=== PATIENT | female | born 1945 | race Hispanic/Latino ===

== ENCOUNTER 2018-12-03 04:49 | Emergency (ER) | payer SELFPAY ==
[~2018-12-03] VITALS: Ht 157.5 cm; Wt 60.0 kg
[2018-12-03] MEDS ORDERED: NORVASC5 M1 PO (05:11)
[2018-12-03] MEDS ORDERED: METOPROLOL TAR100 MG PO (05:12)
[2018-12-03] MEDS ORDERED: GLIMEPIRIDE2 MG PO (05:13)
[2018-12-03 05:31] LABS: HEMATOCRIT 40.6 % (37.0-47.0); HEMOGLOBIN 14.2 g/dl (12.0-16.0); IMMATURE GRANULOCYTES 0.8 % (0.0-5.0); MEAN CELL VOLUME 85.5 fL CALC (80.0-100.0); MEAN CORPUSCULAR HGB 29.9 pG CALC (26.0-32.0); NEUT# 18.83 thou/uL (2.00-7.15); RED BLOOD COUNT 4.75 mill/uL (4.20-5.60); RED CELL DISTRI WIDTH 12.2 % (11.5-15.5)
[2018-12-03 05:44] LABS: ALBUMIN 4.5 g/dL (3.2-5.0); ALKALINE PHOSPHATASE 215 u/l (38-126); AMYLASE 63 u/l (30-110); ANION GAP 17 (6-22 (CALC)); BILIRUBIN, TOTAL 3.6 mg/dL (0.0-1.4); BUN 16 mg/dL (8-23); BUN/CREATININE RATIO 15 (12-20 (CALC)); CARBON DIOXIDE 26 mmol/l (22-30); CHLORIDE 95 mmol/l (95-108); CREATININE 1.1 mg/dL (0.5-1.0); GFR 49 ML/MIN (>=60 (CALC)); GFR FOR AFR.AMER. 59 ML/MIN (>=60 (CALC)); LIPASE 211 u/l (23-300); POTASSIUM 3.1 mmol/l (3.5-5.1); SODIUM 135 mmol/l (137-146); TOTAL PROTEIN 8.1 g/dL (6.3-8.2)
[2018-12-03 05:56] LABS: MYOGLOBIN 63 ng/mL (0 - 62)
[2018-12-03 05:57] LABS: SGOT/AST 895 u/l (9-36)
[2018-12-03 07:16] LABS: URINE BILIRUBIN - DIPSTICK NEGATIVE (NEGATIVE); URINE BLOOD DIPSTICK TRACE-LYSED (NEGATIVE); URINE COLOR YELLOW; URINE GLUCOSE - DIPSTICK 250 mg/dL (NEGATIVE); URINE KETONE NEGATIVE (NEGATIVE); URINE LEUK ESTERASE NEGATIVE (NEGATIVE); URINE NITRITE - DIPSTICK NEGATIVE (Negative); URINE PROTEIN - DIPSTICK NEGATIVE (NEG-TRACE); URINE UROBILINOGEN - DIPSTICK 0.2 E.U./dL (0.2)
[2018-12-03 08:47] VITALS: BP 133/62
--- NOTE | 2018-12-04 08:05 | NUR ---
FAXED PRELIMINARY BLOOD CULTURE RESULTS TO NURSE [facility] AT [facility] [id number]
== END 2018-12-03 08:42 | disposition short-term general hospital (02) | DRG 394 ==
LOC: ED 04:49
PROVIDERS: Emergency Medicine
DX: K91.86 Retained cholelithiasis following cholecystectomy (principal); R78.81 Bacteremia; E11.9 Type 2 diabetes mellitus without complications; I10 Essential (primary) hypertension; Y83.6 Removal of other organ (partial) (total) as the cause of abnormal reaction of the patient, or of later complication, without mention of misadventure at the time of the procedure; Z79.84 Long term (current) use of oral hypoglycemic drugs; B96.20 Unspecified Escherichia coli [E. coli] as the cause of diseases classified elsewhere; Z16.12 Extended spectrum beta lactamase (ESBL) resistance